=== PATIENT | male | born 1990 | race Caucasian/White ===

== ENCOUNTER 2024-01-09 15:39 | Emergency (ER) | payer SELFPAY ==
[2024-01-09 15:43] VITALS: BP 153/129; PULSE 73; TEMP 36.3; O2SAT 99; BMI 35.7
--- NOTE | 2024-01-09 15:51 | PC.NURSE ---
lac to palm of left hand, bleeding on arrival, sterile gauze with coban in place for pressure dressing. PA at bedside
--- NOTE | 2024-01-09 15:55 | ED_ITS ---
HPI - Skin/Abscess/Foreign Bdy General Chief complaint: Skin/Abscess/Foreign Body Stated complaint: Laceration/Puncture Time Seen by Provider: 01/09/24 15:46 Source: patient Mode of arrival: walk-in History of Present Illness HPI narrative: 33-year-old male, [id number] who presents to the ER for evaluation of left palm laceration. Patient was doing dishes at home, states a knife went into his hand and pulled through causing a skin flap like laceration in the left palm at the base of the thumb thenar eminence. Bleeding controlled with direct pressure. Patient denies any blood thinner use. He is not on any medication and does not have a family doctor that he sees on a regular basis. Patient denies any numbness or tingling and notes full range of motion of the thumb at time of arrival. MD complaint: Reports laceration Onset (ago): minute(s) Tetanus up to date: yes (Confirmed what was reported in the triage note, patient states he has to have an updated tetanus for work, he works in a healthcare facility.) Location: Reports L hand Severity: moderate Pain Consistency: Reports constant Associated symptoms: Reports denies other symptoms Treatments prior to arrival: Reports bandages Related Data Previous Rx's ?Medication ?Instructions ?Recorded cephalexin 500 mg capsule 500 mg PO TID 5 days #15 caps 01/09/24 Allergies Allergy/AdvReac Type Severity Reaction Status Date / Time No Known Drug Allergies Allergy Verified 01/09/24 15:46 Review of Systems ROS Constitutional Denies: fever or chills Ears, nose, mouth, and throat Denies: throat pain or neck pain Cardiovascular Denies: chest pain Gastrointestinal Denies: abdominal pain or nausea Musculoskeletal Reports: extremity pain (left palm); Denies: back pain or neck pain Integumentary/Breast Denies: rash, itching or non-healing lesion Psychiatric Denies: anxiety Exam Narrative Exam Narrative: Nurse's notes and vital signs reviewed. Patient is not hypoxic. General: The patient appears well and in no apparent distress. Patient is resting comfortably on cart. Skin: Warm, dry, no pallor noted.2 cm semicircular laceration palm thenar eminence Between the MCP joint and the CMC joint.No arterial bleeding, then US oozing noted. Patient had slight michelle in the thenar muscle group but gross function still intact. Head: Normocephalic, atraumatic Eye: Normal conjunctiva Respiratory: Patient is in no distress Musculoskeletal: The Hand and wrist shows no obvious deformity. Laceration as noted above There was no swelling noted. The patient had Able to fully flex extend and oppose thumb to all digits without difficulty. Patient demonstrated thumb abduction and opposition without difficulty. The patient had tenderness noted Site of laceration. The patient had no tenderness in the anatomical snuff box. The patient had no pain with axial loading of the thumb. Pulses are intact at brachial and radial 2+. There was no deficit at the elbow or shoulder. The patient has normal capillary refill to all distal digits. The patient has no evidence of cyanosis or mottling. The patient is able to flex and extend all digits without difficulty. Neurological: A&O x4, normal sensory, normal motor Psychiatric: Cooperative Constitutional Vital Signs, click to edit/add: Last Vital Signs Temp 97.4 F L 01/09/24 15:43 Pulse 73 01/09/24 15:43 Resp 16 01/09/24 15:43 BP 153/129 H 01/09/24 15:43 Pulse Ox 99 01/09/24 15:43 Course Vital Signs Vital signs: Vital Signs Temperature 97.4 F L 01/09/24 15:43 Pulse Rate 73 01/09/24 15:43 Respiratory Rate 16 01/09/24 15:43 Blood Pressure 153/129 H 01/09/24 15:43 Pulse Oximetry 99 01/09/24 15:43 Temperature 97.4 F L 01/09/24 15:43 Pulse Rate 73 01/09/24 15:43 Respiratory Rate 16 01/09/24 15:43 Blood Pressure 153/129 H 01/09/24 15:43 Pulse Oximetry 99 01/09/24 15:43 MDM - Skin/Abscess/Foreign Bdy MDM Narrative Medical decision making narrative: Discussed laceration, patient concerned about possibility of infection as he was working in [employer], he is not diabetic. He does work at a healthcare facility. He is encouraged to keep the area covered. Gauze dressing applied today should be left in place for the next 24 to 48 hours. May continue to cover the thumb with a bulky gauze dressing to prevent overuse, a thumb spica brace would rub over his incision likely compromising healing. We discussed that he is not to use the left arm for any gripping lifting pushing or pulling. He must keep it clean and dry. Suture removal in 10 days. Patient will try to get in with his family's PCP, otherwise may return to the ER for suture removal. Patient thankful. keflex rx discussed. The patient is to followup with primary care physician in next 10 days or to return to the emergency department should any of the signs or symptoms worsen or new symptoms develop. Patient had questions answered. The patient agrees with the following Diagnosis and Treatment plan and the patient will be discharged home. Discharge Plan Discharge Stand Alone Forms: Portal Instructions Chief Complaint: Skin/Abscess/Foreign Body Clinical Impression: Laceration of hand, left Patient Disposition: Home, Self-Care Time of Disposition Decision: 16:33 Condition: Good Prescriptions / Home Meds: New cephalexin 500 mg capsule 500 mg PO TID 5 Days Qty: 15 0RF Print Language: Anguill[place] Instructions: Laceration (ED) Additional Instructions: Recommend Suture removal in 10 days. keep clean and dry, Bulky gauze dressing with work. No use left hand. Referrals: Physician,Non-Staff, MD [Primary Care Provider] - 1 week MALCOLM RG [Nurse Practitioner] - 01/19/24 Procedures ED Laceration Laceration Laceration 1: Additional comments: Laceration repair: Done under sterile conditions. The use of Betadine was used to prep and clean the area. Local injection with lidocaine 1% with epi was used, approximately 3 cc. The wound was irrigated copiously with normal saline. The wound was explored there was no evidence of foreign material.small michelle into thenar muscle, no tendon involvement and over 95 % of visible muscle tissue appear intact. The laceration was approximated with 5-0 nylon. 7 simple interrupted sutures were placed. Patient tolerated the procedure well. The patient was neurovascularly intact post. the patient had bacitracin applied to the laceration and a dry sterile dressing was place. The patient will need to follow-up in the next 10 days for removal.
[2024-01-09] MEDS: SODIUM CHLORIDE 0.9% IRRIG SOLUTION 1,000 ML BOTTLE 1000 ML IRR (16:05)
[2024-01-09] MEDS: BACITRACIN 0.9 GM PACKET 1 PACKET TOPICAL (16:06)
[2024-01-09] MEDS: LIDOCAINE HCL 1%-EPINEPHRINE 1:100,000 20 ML MDV 10 ML INJ (16:06)
[2024-01-09 16:44] VITALS: BP 140/88; PULSE 88; O2SAT 99
== END 2024-01-09 16:45 | disposition home or self-care (01) ==
PROVIDERS: Emergency Provider Emergency Medicine
DX: S61.412A Laceration without foreign body of left hand, initial encounter (principal); W26.0XXA Contact with knife, initial encounter
CPT/HCPCS: 12001; 99283